=== PATIENT | male | born 1955 | race Caucasian/White ===

== ENCOUNTER 2023-01-06 05:26 | Day surgery (SDC) | payer MEDICARE, BC ==
[2022-12-30 14:23] LABS: BASOPHILS % (AUTO) 0.5 % (0-1); EOSINOPHILS # (AUTO) 0.1 X10'3 (0-0.9); EOSINOPHILS % (AUTO) 1.4 % (0-6); LYMPHOCYTES # (AUTO) 1.7 X10'3 (1.1-4.8); LYMPHOCYTES % (AUTO) 27.9 % (21-51); MEAN CORPUSCULAR HEMOGLOBIN 31.6 PG (27.0-31.0); MEAN CORPUSCULAR HGB CONC 34.1 g/dL (33.0-36.5); MEAN CORPUSCULAR VOLUME 92.7 FL (78-98); MEAN PLATELET VOLUME 7.2 FL (7.4-10.4); MONOCYTES # (AUTO) 0.6 X10'3 (0-0.9); MONOCYTES % (AUTO) 10.1 % (2-12); NEUTROPHILS # (AUTO) 3.7 X10'3 (1.8-7.7); NEUTROPHILS % (AUTO) 60.1 % (42-75); PRE OP HEMATOCRIT 47.5 % (42.0-52.0); PRE OP HEMOGLOBIN 16.2 g/dL (14.0-17.9); PRE OP PLATELET COUNT 253 X10'3 (140-440); RED BLOOD COUNT 5.13 X10'6 (4.70-6.10); RED CELL DISTRIBUTION WIDTH 13.1 % (11.5-14.5)
[2022-12-30 14:36] LABS: ALBUMIN 3.8 G/DL (3.4-5.0); ALBUMIN/GLOBULIN RATIO 1.1 (1.1-1.5); ALKALINE PHOSPHATASE 66 IU/L (46-116); BLOOD UREA NITROGEN 16 MG/DL (7-18); BUN/CREATININE RATIO 15.4 (10.0-20.0); CALCIUM 9.1 MG/DL (8.5-10.1); CHLORIDE 104 MMOL/L (99-107); CREATININE 1.04 MG/DL (0.60-1.10); PRE OP ALT 35 U/L (30-65); PRE OP ANION GAP 9 (8-16); PRE OP AST 10 U/L (10-37); PRE OP BILIRUB, TOTAL 0.3 MG/DL (0.0-1.0); PRE OP GLUCOSE 113 MG/DL (70-104); PRE OP POTASSIUM 4.1 MMOL/L (3.4-5.1); PRE OP SODIUM 141 MMOL/L (135-145); TOTAL CARBON DIOXIDE 28.3 MMOL/L (24-32); TOTAL PROTEIN 7.4 G/DL (6.4-8.2); eGFR 71 ML/MIN
[~2023-01-06] VITALS: Ht 172.7 cm; Wt 75.3 kg
[2023-01-06] VITALS (9 sets, daily range): BP systolic 121–144; BP diastolic 79–88
[~2023-01-06 05:26] MED LIST: ASCO500T28 PO; OMEG-5 PO; [UNRECOGNIZED DRUG - OTHER]; ringers solution, lacted 1,000 ML IV SCH
[2023-01-06] MEDS ORDERED: famotidine 20mg tablet PO ONE (05:30)
[2023-01-06] MEDS ORDERED: cefazolin 2gm/D5W 100mL 100 ML IV ONE (05:30)
[2023-01-06] MEDS ORDERED: BUPIVAcaine/PF 2.5 mg/ml (0.25%) 30ml vial ONE ×2 (06:35→08:00)
[2023-01-06] MEDS ORDERED: LIDOcaine 1% 30ml preserv. free vial ONE (06:35)
[2023-01-06] MEDS ORDERED: sevoflurane 250ml liquid IH ONE (07:26)
[2023-01-06] MEDS ORDERED: midazolam 1 mg/ML 2ml injection ONE (07:31)
[2023-01-06] MEDS ORDERED: fentaNYL /PF 50mcg/ml 5ml ampule ONE (07:32)
[2023-01-06] MEDS ORDERED: proCHLORperazine 10 MG/2 ml inj IV PRN (07:45)
[2023-01-06] MEDS ORDERED: ondansetron/PF 4mg/2ml inj IV PRN (07:45)
[2023-01-06] MEDS ORDERED: meperidine/PF 25mg/ml syringe IV PRN ×3 (07:45)
[2023-01-06] MEDS ORDERED: ketorolac trometh. 30mg/ml inj. IV ONE (07:45)
[2023-01-06] MEDS ORDERED: hydrALAZINE 20mg/ml inj. IV PRN (07:45)
[2023-01-06] MEDS ORDERED: morphine 2 MG/ML inj. syringe IV PRN (07:45)
[2023-01-06] MEDS ORDERED: morphine 4 MG/ML inj SYRINge IV PRN (07:45)
[2023-01-06] MEDS ORDERED: ringers solution, lacted 1,000 ML IV SCH (07:45)
[2023-01-06] MEDS ORDERED: acetaminophen 1,000mg/100ml IV 100 ML IV PRN (07:45)
[2023-01-06] MEDS ORDERED: labetalol 20mg/4ml (5mg/ml) syringe IV PRN (07:45)
[2023-01-06] MEDS ORDERED: rocuronium 10mg/ml inj IV ONE (07:55)
[2023-01-06] MEDS ORDERED: LIDOcaine 2% (20mg/ml) 5ml vial ONE (07:55)
[2023-01-06] MEDS ORDERED: dexamethasone sod phosphate 4mg/ml inj. ONE (07:55)
[2023-01-06] MEDS ORDERED: propofol inj 20 ML IV ONE (07:55)
[2023-01-06] MEDS ORDERED: ondansetron/PF 4mg/2ml inj ONE (07:55)
[2023-01-06] MEDS ORDERED: BUPIVACAINE liposomal/PF 13.3 MG/ML vial IM ONE (08:00)
[2023-01-06] MEDS ORDERED: neostigmine methylsulfate 1 MG/ML 10ml vial ONE (08:35)
[2023-01-06] MEDS ORDERED: glycopyrrolate 0.2mg/ml inj ONE (08:35)
--- NOTE | 2023-01-06 09:00 | NUR ---
Received from OR via BED, accompanied by Anesthesiologist and report given by Anesthesiologist. PATIENT WAKING UP, NO S/S OF PAIN, V/S WNL, SCD ON, 20G TO LUE, ABDOMEN LAP SITE CLEAN W/ NO S/S OF COMPLICATIONS
[2023-01-06] MEDS ORDERED: oxyCODONE/APAP 5-325mg tablet PO PRN (09:15)
--- NOTE | 2023-01-06 10:10 | NUR ---
PATIENT A&OX4, 11/19 PAIN, V/S WNL, SCD OFF, 20G TO LUE D/C, ABDOMEN LAP SITE CLEAN W/ NO S/S OF COMPLICATIONS .I HAVE REVIEWED D/C INSTRUCTIONS WITH PATIENT INSTRUCTIONS WITH PATIENT AND THEY HAVE VERBALIZED UNDERSTANDING. PATIENT D/C HOME WITH ALL BELONGINGS AND FAMILY TRANSPORTED PATIENT HOME.
== END 2023-01-06 10:10 | disposition home or self-care (01) ==
LOC: PAS 05:26
PROVIDERS: ATTEND Surgery
DX: K42.9 Umbilical hernia without obstruction or gangrene (principal); M19.90 Unspecified osteoarthritis, unspecified site; Z79.899 Other long term (current) drug therapy; Z87.891 Personal history of nicotine dependence; Z98.890 Other specified postprocedural states
CPT/HCPCS: 36415; 49591; 64488; 80053; 82948; 85025; 93005; C1781; C9290; J0690; J1100; J1885; J2250; J2405; J2704; J2710; J3010; J3490; J7030; J7120; Z7506; Z7508; Z7512; A4215; A4618